=== PATIENT | female | born 1990 | race Caucasian/White ===

== ENCOUNTER 2017-11-03 17:16 | Emergency (ER) | payer OTHER ==
[2017-11-03 17:20] VITALS: BMI 21.4
[2017-11-03 17:26] VITALS: BP 122/68; PULSE 60; TEMP 99
--- NOTE | 2017-11-03 17:35 | PDOC ---
History of Present Illness - General History Source: Patient Exam Limitations: No Limitations - History of Present Illness Initial Comments: 11/03/17 18:35 The patient is a 27-year-old female [employer], with no significant past medical history, who presents to the ED with left knee pain that began an hour prior to presentation. Pt twisted her left knee as she was trying to and restrain an EDP. Pt was able to ambulate on the scene but was transported on a stretcher to the ED for further evaluation. She has been icing the knee but denies taking any medication for the pain. She denies having any other injuries or symptoms. Denies falls or head strike. Was in her [facility] prior to the injury, denies fevers, chills, cp, sob, weakness, numbness, abd pain, n/v/d. <Payal Whyte - Last Filed: 11/03/17 18:35> <Antony Del Angel - Last Filed: 11/03/17 18:58> - General Chief Complaint: Pain, Acute Stated Complaint: left knee pain Time Seen by Provider: 11/03/17 17:19 Past History <Payal Whyte - Last Filed: 11/03/17 18:35> - Past Medical History COPD: No Other medical history: denies - Suicide/Smoking/Psychosocial Hx Smoking History: Never smoked Hx Alcohol Use: No Drug/Substance Use Hx: No Substance Use Type: Alcohol <Antony Del Angel - Last Filed: 11/03/17 18:58> - Past Medical History Allergies/Adverse Reactions: Allergies Allergy/AdvReac Type Severity Reaction Status Date / Time No Known Allergies Allergy Verified 11/03/17 17:17 Home Medications: Ambulatory Orders Norgestimate-Ethinyl Estradiol [Tri-Sprintec Tablet] 1 each PO DAILY 11/03/17 Review of Systems - Review of Systems Able to Perform ROS?: Yes Comments:: 11/03/17 18:36 GENERAL/CONSTITUTIONAL: No fever or chills. No weakness. HEAD, EYES, EARS, NOSE AND THROAT: No change in vision. No ear pain or discharge. No sore throat. GASTROINTESTINAL: No nausea, vomiting, diarrhea or constipation. GENITOURINARY: No dysuria, frequency, or change in urination. CARDIOVASCULAR: No chest pain or shortness of breath. RESPIRATORY: No cough, wheezing, or hemoptysis. MUSCULOSKELETAL: (+)Left knee pain. No joint swelling or pain. No neck or back pain. SKIN: No rash NEUROLOGIC: No headache, vertigo, loss of consciousness, or change in strength/ sensation. ENDOCRINE: No increased thirst. No abnormal weight change. HEMATOLOGIC/LYMPHATIC: No anemia, easy bleeding, or history of blood clots. ALLERGIC/IMMUNOLOGIC: No hives or skin allergy. <PatoPayal - Last Filed: 11/03/17 18:35> *Physical Exam - Vital Signs Last Vital Signs Temp Pulse Resp BP Pulse Ox 99 F 60 16 122/68 100 11/03/17 17:16 11/03/17 17:16 11/03/17 17:16 11/03/17 17:16 11/03/17 17:16 - Physical Exam Comments: 11/03/17 18:36 GENERAL: Awake, alert, and fully oriented, in no acute distress HEAD: No signs of trauma EYES: PERRLA, EOMI, sclera anicteric, conjunctiva clear ENT: Auricles normal inspection, hearing grossly normal, nares patent, oropharynx clear without exudates. Moist mucosa NECK: Normal ROM, supple, no lymphadenopathy, JVD, or masses LUNGS: Breath sounds equal, clear to auscultation bilaterally. No wheezes, and no crackles HEART: Regular rate and rhythm, normal S1 and S2, no murmurs, rubs or gallops ABDOMEN: Soft, nontender, normoactive bowel sounds. No guarding, no rebound. No masses EXTREMITIES: (+)Left Knee: Tenderness to palpation over the medial collateral ligament. Pain on varus stress of the knee. Edema noted to the medial aspect of the knee but no bony deformities noted. Negative anterior and posterior drawer test. Negative denny's test. No clubbing or cyanosis. No cords or erythema. 2 + DP pulse. Remainder of extremities with FROM, no ttp, erythema, or edema and 2 + peripheral pulses. BACK: No midline spinal tenderness in cervical/thoracic/lumbar region NEUROLOGICAL: Normal speech, cranial nerves intact, negative pronator drift, 5/ 5 strength in all 4 extremities, normal sensation to light touch in all 4 extremities, normal cerebellar exam, normal gait, normal reflexes and tone SKIN: Warm, Dry, normal turgor, no rashes or lesions noted. 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 Vitals unremarkable. Exam with tenderness over the MCL and pain with varus stress. No deformities but slight edema to the medial aspect of the knee. Will obtain a test, control pain and obtain a x-ray of the knee to rule out bony injury. 11/03/17 18:55 X-ray negative for bony injury. Possible ligamentous injury. Discussed with patient who will follow up with orthopedics. I discussed the physical exam findings, ancillary test results and final diagnoses with the patient. I answered all of the patient's questions. The patient was satisfied with the care received and felt comfortable with the discharge plan and treatment plan. The patient will call their primary care physician within 24 hours to arrange follow-up and will return to the Emergency Department with any new, persistent or worsening symptoms. <Antony Del Angel - Last Filed: 11/03/17 18:58> *DC/Admit/Observation/Transfer - Attestations Scribe Attestion: 11/03/17 18:36 Documentation prepared by Payal Whyte, acting as medical logistics specialist for Antony Del Angel MD. <Payal Whyte - Last Filed: 11/03/17 18:35> - Discharge Dispostion Admit: No - Attestations Physician Attestion: 11/03/17 18:58 I, Dr. Antony Del Angel MD, attest that this document has been prepared under my direction and personally reviewed by me in its entirety. I further attest, that it accurately reflects all work, treatment, procedures and medical decision -making performed by me. <Antony Del Angel - Last Filed: 11/03/17 18:58> Diagnosis at time of Disposition: Knee pain, left - Discharge Dispostion Disposition: HOME Condition at time of disposition: Stable - Referrals Referrals: Dano Chino MD [Staff Physician] - - Patient Instructions Printed Discharge Instructions: DI for Knee Sprain, DI for Knee Pain Additional Instructions: Call Dr. Chino for a follow-up appointment with the orthopedic doctor within one week. You may take ibuprofen [id number] as needed for pain. Return to the emergency department if you have any new, worsening or concerning symptoms.
[2017-11-03] MEDS ORDERED: KETOROLAC TROMETHAMINE 15 MG/ML VIAL IM ONE (18:23)
[2017-11-03] MEDS ORDERED: KETOROLAC TROMETHAMINE 30 MG/1 ML VIAL ONE (18:34)
== END 2017-11-03 19:19 | disposition home or self-care (01) ==
LOC: FER 17:16
PROC: 3E0233Z Introduction of Anti-inflammatory into Muscle, Percutaneous Approach (ICD-10-PCS; principal; 2017-11-03)
DX: M25.562 Pain in left knee (principal)
CPT/HCPCS: 73562-TC-LT; 84703; 99282-25